=== PATIENT | female | born 1945 | race Caucasian/White ===

== ENCOUNTER → 2016-08-02 | Outpatient (CLI) | payer MEDICARE | END | disposition home or self-care (01) | LOC: PCVCIMAG 10:01 | PROVIDERS: ATTEND Internal Medicine Cardiovascular Disease | DX: I48.91 Unspecified atrial fibrillation (principal); I10 Essential (primary) hypertension | CPT/HCPCS: 93306 ==

== ENCOUNTER → 2017-02-18 | Outpatient (CLI) | payer MEDICARE | END | disposition home or self-care (01) | LOC: PCVCCLINIC 15:32 | PROVIDERS: ATTEND Internal Medicine | DX: I25.10 Atherosclerotic heart disease of native coronary artery without angina pectoris (principal); I48.0 Paroxysmal atrial fibrillation; I10 Essential (primary) hypertension; E78.00 Pure hypercholesterolemia, unspecified; E66.9 Obesity, unspecified; Z86.73 Personal history of transient ischemic attack (TIA), and cerebral infarction without residual deficits; Z90.49 Acquired absence of other specified parts of digestive tract; Z96.651 Presence of right artificial knee joint; Z79.899 Other long term (current) drug therapy; Z88.8 Allergy status to other drugs, medicaments and biological substances | CPT/HCPCS: 36415; 80061; G0463 ==

== ENCOUNTER → 2017-09-11 | Outpatient (CLI) | payer MEDICARE | END | disposition home or self-care (01) | LOC: PCVCIMAG 10:02 | DX: I07.1 Rheumatic tricuspid insufficiency (principal); I25.10 Atherosclerotic heart disease of native coronary artery without angina pectoris; I48.0 Paroxysmal atrial fibrillation; E78.00 Pure hypercholesterolemia, unspecified; I10 Essential (primary) hypertension; E11.9 Type 2 diabetes mellitus without complications; I63.9 Cerebral infarction, unspecified; Z79.899 Other long term (current) drug therapy | CPT/HCPCS: 36415; 80061; 93005; 93306; G0463 ==

== ENCOUNTER → 2018-04-21 | Outpatient (CLI) | payer MEDICARE | END | disposition home or self-care (01) | LOC: PCVCCLINIC 13:54 | PROVIDERS: ATTEND Internal Medicine Cardiovascular Disease | DX: I25.10 Atherosclerotic heart disease of native coronary artery without angina pectoris (principal); I48.0 Paroxysmal atrial fibrillation; E78.00 Pure hypercholesterolemia, unspecified; E11.9 Type 2 diabetes mellitus without complications; I63.40 Cerebral infarction due to embolism of unspecified cerebral artery; I10 Essential (primary) hypertension; D68.69 Other thrombophilia | CPT/HCPCS: 80061; 93005; G0463 ==

== ENCOUNTER → 2019-01-05 | Outpatient (CLI) | payer MEDICARE ==
--- NOTE | 2019-01-05 12:48 | PCVCIMAG ---
APPROVED REPORT Study performed: 01/05/2019 10:57:06 EXAM: Comprehensive 2D, Doppler, and color-flow Echocardiogram Patient Location: Echo lab Status: routine BSA: 1.80 HR: 50 bpmBP: 130/80 mmHg Rhythm: Bradycardia Other Information Study Quality: Adequate Risk Factors: Cardiac Risk Factors: HTN, DM Indications Bradycardia CAD parox a fib 2D Dimensions IVSd: 10.95 (7-11mm) LVDd: 42.78 mm PWd: 10.94 (7-11mm)Ascending Ao: 33.67 (22-36mm) LVDs: 30.44 (25-40mm) Left Atrium: 43.47 (27-40mm) Aortic Root: 28.26 mm LV Single Plane 4CH: 56.32 % LV Single Plane 2CH: 54.24 % Biplane EF: 57.0 % Volumes Left Atrial Volume (Systole) Single Plane 4CH: 83.48 mLSingle Plane 2CH: 68.49 mL LA ESV Index: 45.00 mL/m2 Aortic Valve AoV Peak Roby.: 1.91 m/s AO Peak Gr.: 14.66 mmHgLVOT Max P.96 mmHg LVOT Max V: 1.31 m/s Mitral Valve E/A Ratio: 1.9 MV Decel. Time: 241.33 ms MV E Max Roby.: 0.76 m/s MV A Roby.: 0.41 m/s IVRT: 117.65 ms Pulmonary Valve PV Peak Roby.: 0.99 m/sPV Peak Gr.: 3.89 mmHg Pulmonary Vein P Vein S: 0.31 m/sP Vein A: 0.31 m/s P Vein D: 0.42 m/sP Vein A Dur.: 166.1 msec P Vein S/D Ratio: 0.74 Tricuspid Valve TR Peak Roby.: 2.77 m/s TR Peak Gr.: 30.72 mmHg Left Ventricle The left ventricle is normal size. There is normal LV segmental wall motion. There is normal left ventricular wall thickness. Left ventricular systolic function is normal. The left ventricular ejection fraction is within the normal range. LVEF is 55-60%. Grade II - pseudonormal filling dynamics. Right Ventricle The right ventricle is normal size. The right ventricular systolic function is normal. Atria Left atrium is moderately dilated. Right atrium is mildly dilated. Aortic Valve The aortic valve is normal in structure. No aortic regurgitation is present. There is no aortic valvular stenosis. Mitral Valve Mild mitral annular calcification. Trace mitral regurgitation. No evidence of mitral valve stenosis. Tricuspid Valve The tricuspid valve is normal in structure. Mild tricuspid regurgitation with PAP of 38 mmHg. Pulmonic Valve The pulmonary valve is normal in structure. There is no pulmonic valvular regurgitation. Great Vessels The aortic root is normal in size. IVC is normal in size and collapses >50% with inspiration. Pericardium There is no pericardial effusion. There is no pleural effusion. <Conclusion> The left ventricle is normal size. LVEF is 55-60%. Grade II - pseudonormal filling dynamics. The right ventricle is normal size. Left atrium is moderately dilated. Right atrium is mildly dilated. The aortic valve is normal in structure. Mild mitral annular calcification. Mild tricuspid regurgitation with PAP of 38 mmHg. The aortic root is normal in size. There is no pericardial effusion.
== END | disposition home or self-care (01) ==
LOC: PCVCIMAG 10:48
PROVIDERS: ATTEND Internal Medicine Cardiovascular Disease
DX: I08.1 Rheumatic disorders of both mitral and tricuspid valves (principal); I48.0 Paroxysmal atrial fibrillation; I25.10 Atherosclerotic heart disease of native coronary artery without angina pectoris; E78.00 Pure hypercholesterolemia, unspecified; I10 Essential (primary) hypertension; E11.8 Type 2 diabetes mellitus with unspecified complications; Z88.8 Allergy status to other drugs, medicaments and biological substances; E66.9 Obesity, unspecified; Z79.899 Other long term (current) drug therapy; Z88.2 Allergy status to sulfonamides
CPT/HCPCS: 36415; 80061; 93005; 93306; G0463

== ENCOUNTER → 2019-03-30 | Outpatient (CLI) | payer MEDICARE ==
[~2019-03-30] MED LIST: REGADENOSON 0.4 MG/5 ML DISP.SYRIN. IV ONE
--- NOTE | 2019-04-01 12:58 | PCVCIMAG ---
APPROVED REPORT Imaging Protocol: Rest Tc-99m/Stress Tc-99m 1 day Study performed: 03/30/2019 09:58:35 Indication: Afib Patient Location: Out-Patient Stress Nurse: Meenu Restrepo RN, LUCINA Giron Tech:Anderson VelizREBECCA Ht: 5 ft 1 in Wt: 178 lbs BSA: 1.80 m2 HR: 46 bpm BP: 141/67 mmHg BMI: 33.6 Rhythm: Sinus Bradycardia Medical History Medical History: Age, Hyperlipidemia, HTN, CAD, Afib, DM Non insulin Medications: Xarelto, Atorvastatin, Zetia, Irbesartan, Aldactone, Januvia Allergies: Many none r/t test Exercise History: Sedentary Physical Disabilities: Knees Resting Data Rest SPECT myocardial perfusion imaging was performed in supine position 45 minutes following the intravenous injection of 10.7 mCi of Tc-99m Sestamibi. Time of rest injection: 1010 Date: 03/30/2019 Administration Route: IV Administration Site: Right AC Pharmacologic Stress Pharmacologic stress test was performed by injecting Regadenoson 0.4 mg IV push over 10-15 seconds immediately followed by the intravenous injection of 32.2 mCi of Tc-99m Sestamibi. Time of stress injection: 1240 Date: 03/30/2019 Administration Route: IV Administration Site: Right AC Gated Stress SPECT was performed 45 minutes after stress injection. The images were gated to evaluate regional wall motion and calculate left ventricular ejection fraction. Stress Test Details Stress Test: Pharmacologic stress testing performed using 0.4 mg of regadenoson per 5 mL given IV over 10 seconds. Reason for pharmacologic stress test: Knee problems. HRMax Heart Rate (APMHR): 146 bpm Resting HR: 46 bpmTarget HR (85% APMHR): 124 bpm Max HR Achieved: 64 bpm % of APMHR: 43 Recovery HR: 55 bpm BP Resting BP: 141/67 mmHg Max BP: 123/65 mmHg Recovery BP: 147/78 mmHg ECG Resting ECG: Sinus Bradycardia Stress ECG: Sinus Rhythm Arrhythmia: PVC's Recovery ECG: Sinus Rhythm Clinical Reason for Termination: Completed protocol Stress Symptoms: Dyspnea, Nausea, Headache Symptoms resolved with caffeine. Stress ECG Conclusion ECG: Non-ischemic Study Quality Study: Good Study Data Post stress, the left ventricular ejection was 81%.. SSS: 13 SRS: 4 SDS: 9 TID = 1.00. Perfusion Medium sized area of moderate reversible ischemia involving the inferolateral left ventricle consistent with a circumflex distribution. Wall Motion Normal left ventricular size and function with no regional wall motion abnormalities. Nuclear Conclusion Medium sized area of moderate reversible ischemia involving the inferolateral left ventricle consistent with a circumflex distribution is more pronounced than on January 2017 study. Normal left ventricular size and function with no regional wall motion abnormalities. Post stress, the left ventricular ejection was 81%. Interpreted by: Marc Rascon MD Electronically Approved: 03/30/2019 15:24:45 <Conclusion> ECG: Non-ischemic
== END | disposition home or self-care (01) ==
LOC: PCVCIMAG 09:54
PROVIDERS: ATTEND Internal Medicine Cardiovascular Disease
DX: I48.0 Paroxysmal atrial fibrillation (principal); I25.10 Atherosclerotic heart disease of native coronary artery without angina pectoris; R53.83 Other fatigue; E78.00 Pure hypercholesterolemia, unspecified; I10 Essential (primary) hypertension; E11.9 Type 2 diabetes mellitus without complications
CPT/HCPCS: 78452; 93017; A9500; J2785

== ENCOUNTER → 2019-04-28 | Outpatient (CLI) | payer MEDICARE | END | disposition home or self-care (01) | LOC: PCVCCLINIC 14:30 | PROVIDERS: ATTEND Internal Medicine Cardiovascular Disease | DX: I25.10 Atherosclerotic heart disease of native coronary artery without angina pectoris (principal); E78.00 Pure hypercholesterolemia, unspecified; I48.0 Paroxysmal atrial fibrillation; R53.83 Other fatigue; I63.40 Cerebral infarction due to embolism of unspecified cerebral artery; C67.9 Malignant neoplasm of bladder, unspecified; D68.59 Other primary thrombophilia; I10 Essential (primary) hypertension; E11.9 Type 2 diabetes mellitus without complications; E66.9 Obesity, unspecified; Z88.8 Allergy status to other drugs, medicaments and biological substances; Z79.899 Other long term (current) drug therapy; Z88.2 Allergy status to sulfonamides | CPT/HCPCS: 36415; 80061; 93005; G0463 ==